=== PATIENT | male | born 1975 | race Two or more races ===

== ENCOUNTER 2021-11-17 16:48 | Inpatient (IN) | payer SELFPAY ==
[~2021-11-17] VITALS: Ht 182.9 cm; Wt 70.4 kg
[2021-11-17] MEDS ORDERED: KETOROLAC 15 MG/ML VIAL. IVP ONE (17:00)
[2021-11-17] MEDS ORDERED: CONTRAST GIVEN. MC PRN (17:30)
[2021-11-17] MEDS ORDERED: IOHEXOL 300 MG/ML 100ML VIAL. IV ONE (17:30)
--- NOTE | 2021-11-17 18:01 | RAD ---
Exam: CT head and cervical spine INDICATION: Fall greater than 10 feet, left-sided chest pain TECHNIQUE: Sequential axial images through the head and cervical spine were obtained without the admi nistration of IV contrast. Exposure: One or more of the following in the visualized dose reduction techniques were utilized for this examination: 1. Automated exposure control 2. Adjustment of the MA and/or KV according to patient size 3. Use of iterative of reconstructive technique Comparisons: None FINDINGS: Head: There is curvilinear hyperdensity noted at the superior right frontal region series 2 image 27. There is no midline shift or sulcal effacement. No acute vascular territory infarction is identified. Aguilera-white distinction is preserved. The ventricular system is within normal limits without compression hydrocephalus. The basal cisterns are well maintained. The visualized portions of the paranasal sinuses and mastoid air cells are well-pneumatized. No acute fractures. Cervical spine: Straightening of cervical spine which may positional. Vertebral body heights are well-maintained. Fracture to the cervical spine is not identified. No significant spondylotic change in cervical spine. Visualized paraspinal soft tissues are unremarkable. IMPRESSION: Small amount of subarachnoid hemorrhage at the right superior frontal region. No mass effect. Negative CT C-spine for acute traumatic injury. FOR INTERNAL CODING PURPOSES Critical result: Findings discussed with ADRIEN NUNES at 11/17/2021 5:58 PM. RESULT CODE: (C) Electronically signed by: Brittani Rodrigues MD (11/17/2021 5:59 PM) [facility]
--- NOTE | 2021-11-17 18:06 | PHYS DOC ---
Past Medical History Past Medical History: No Pertinent History Past Surgical History: No Surgical History Smoking Status: Light Tobacco Smoker Additional Information: Cigars Alcohol Use: Occasionally General Adult EDM: Chief Complaint: MECHANICAL FALL HPI: HPI: Patient is a 46 year old male who presents with headache, anterior chest wall pain and low back pain status post fall from a tree. Patient states he was trimming a tree when he lost his balance and fell. He states he had initial contact with the ground on his left side and then a second impact to his low back. He denies loss of consciousness. Patient rates his headache 5/10, anterior chest wall pain 7/10 and worse with deep inspiration and low back pain 7/10. Patient denies all past medical history and daily medications. Patient denies vision changes, dizziness, palpitations, edema, saddle anesthesia, bowel or bladder incontinence, extremity paresthesias. Patient is romansh speaking. Interview and exam were conducted in romansh with good understanding and fluid communication. Review of Systems: Review of Systems: Constitutional: Denies fever, chills or generalized weakness Eyes: Denies change in visual acuity, visual field deficits or discharge HENT: Denies ear pain, nasal congestion or sore throat Respiratory: Denies cough or shortness of breath Cardiovascular: Denies palpitations or edema GI: Denies abdominal pain, nausea, vomiting, bloody stools or diarrhea : Denies dysuria or hematuria Musculoskeletal: Denies back pain or joint pain Integument: See HPI Neurologic: See HPI Heart Score: C/O Chest Pain: N/A Current Medications: Current Medications Medications (Trade) Dose Ordered Sig/Leann Start Time Stop Time Status Last Admin Dose Admin Info (CONTRAST GIVEN -- Rx MONITORING) 1 each PRN DAILY PRN 11/17/21 17:30 11/19/21 17:29 Iohexol (Omnipaque 300 Mg/ml) 75 ml 1X ONCE 11/17/21 17:30 11/17/21 17:31 DC 11/17/21 17:39 75 ML Ketorolac Tromethamine (Toradol 15mg Vial) 15 mg 1X ONCE 11/17/21 17:00 11/17/21 17:04 DC 11/17/21 17:09 15 MG Allergies: Allergies: Allergies Coded Allergies Type Severity Reaction Last Updated Verified No Known Drug Allergies 11/17/21 No Physical Exam: PE: Constitutional: Well developed, well nourished, no acute distress, non-toxic ap pearance, patient is disheveled and his pants are covered in dirt. HENT: Normocephalic, atraumatic, bilateral external ears normal, oropharynx moist, no oral exudates, nose normal. Eyes: PERRL, EOMI, conjunctiva normal, no discharge. Neck: Normal range of motion, no tenderness, supple, no stridor. Cardiovascular: Heart regular rate and rhythm. No apparent murmurs, rubs or gallops. Lungs & Thorax: Equal thoracic expansion, no increased work of breathing, reproducible chest wall tenderness on palpation to the left anterior chest, sounds symmetrical and clear to auscultation in all lung damon. Abdomen: Bowel sounds normal, soft, no tenderness, no masses, no pulsatile masses, negative Silverio sign, negative Noriega-Leach sign. Skin: Warm, dry, no erythema, no rash. Back: No step-off, no bony tenderness, bilateral lumbar paraspinal tenderness. Extremities: No tenderness, no cyanosis, no clubbing, ROM intact, no edema. Neurologic: Alert and oriented x4, normal motor function, normal sensory function, no focal deficits noted. Current Patient Data: Labs: Laboratory Tests Test 11/17/21 16:55 White Blood Count 10.7 x10^3/uL (4.0-11.0) Red Blood Count 4.93 x10^6/uL (4.30-5.70) Hemoglobin 15.7 g/dL (13.0-17.5) Hematocrit 46.0 % (39.0-53.0) Mean Corpuscular Volume 94 fL (79-100) Mean Corpuscular Hemoglobin 32 pg (25-35) Mean Corpuscular Hemoglobin Concent 34 g/dL (31-37) Red Cell Distribution Width 13.8 % (11.5-14.5) Platelet Count 298 x10^3/uL (140-400) Neutrophils (%) (Auto) 73 % (31-73) Lymphocytes (%) (Auto) 17 % (24-48) Monocytes (%) (Auto) 10 % (0-9) Eosinophils (%) (Auto) 1 % (0-3) Basophils (%) (Auto) 0 % (0-3) Neutrophils # (Auto) 7.8 x10^3/uL (1.8-7.7) Lymphocytes # (Auto) 1.8 x10^3/uL (1.0-4.8) Monocytes # (Auto) 1.0 x10^3/uL (0.0-1.1) Eosinophils # (Auto) 0.1 x10^3/uL (0.0-0.7) Basophils # (Auto) 0.0 x10^3/uL (0.0-0.2) Sodium Level 143 mmol/L (136-145) Potassium Level 3.6 mmol/L (3.5-5.1) Chloride Level 103 mmol/L (98-107) Carbon Dioxide Level 32 mmol/L (21-32) Anion Gap 8 (6-14) Blood Urea Nitrogen 10 mg/dL (8-26) Creatinine 0.9 mg/dL (0.7-1.3) Estimated GFR (Cockcroft-Gault) 91.3 BUN/Creatinine Ratio 11 (6-20) Glucose Level 88 mg/dL (70-99) Calcium Level 8.6 mg/dL (8.5-10.1) Total Bilirubin 0.2 mg/dL (0.2-1.0) Aspartate Amino Transf (AST/SGOT) 29 U/L (15-37) Alanine Aminotransferase (ALT/SGPT) 36 U/L (16-63) Alkaline Phosphatase 126 U/L (46-116) Total Protein 7.9 g/dL (6.4-8.2) Albumin 4.1 g/dL (3.4-5.0) Albumin/Globulin Ratio 1.1 (1.0-1.7) Ethyl Alcohol Level < 10 mg/dL (0-10) Vital Signs: Vital Signs Date Time Temp Pulse Resp B/P (MAP) Pulse Ox O2 Delivery O2 Flow Rate FiO2 11/17/21 18:03 58 18 109/58 (75) 100 Room Air 11/17/21 17:09 58 18 133/73 (93) 100 Room Air 11/17/21 16:49 97.9 67 18 135/83 (100) 95 Room Air 97.9 Radiology/Procedures: Radiology/Procedures: PROCEDURE: CT HEAD AND CERVICAL SPINE WO Exam: CT head and cervical spine INDICATION: Fall greater than 10 feet, left-sided chest pain TECHNIQUE: Sequential axial images through the head and cervical spine were obtained without the administration of IV contrast. Exposure: One or more of the following in the visualized dose reduction techniques were utilized for this examination: 1. Automated exposure control 2. Adjustment of the MA and/or KV according to patient size 3. Use of iterative of reconstructive technique Comparisons: None FINDINGS: Head: There is curvilinear hyperdensity noted at the superior right frontal region series 2 image 27. There is no midline shift or sulcal effacement. No acute vascular territory infarction is identified. Aguilera-white distinction is preserved. The ventricular system is within normal limits without compression hydrocephalus. The basal cisterns are well maintained. The visualized portions of the paranasal sinuses and mastoid air cells are well- pneumatized. No acute fractures. Cervical spine: Straightening of cervical spine which may positional. Vertebral body heights are well-maintained. Fracture to the cervical spine is not identified. No significant spondylotic change in cervical spine. Visualized paraspinal soft tissues are unremarkable. IMPRESSION: Small amount of subarachnoid hemorrhage at the right superior frontal region. No mass effect. Negative CT C-spine for acute traumatic injury. FOR INTERNAL CODING PURPOSES Critical result: Findings discussed with ADRIEN NUNES at 11/17/2021 5:58 PM. RESULT CODE: (C) Electronically signed by: Brittani Rodrigues MD (11/17/2021 5:59 PM) [facility] PROCEDURE: CT CHEST ABD PELVIS W/CONTRAST Study: CT chest, abdomen and pelvis with contrast INDICATION: Fall from a height. Left-sided chest pain. Low back pain. COMPARISON: None. TECHNIQUE: Helical CT imaging performed of the chest, abdomen and pelvis after the intravenous administration of 75 cc Omnipaque 300. Coronal and sagittal reformats were obtained. One or more of the following individualized dose reduction techniques were utilized for this examination: 1. Automated exposure control 2. Adjustment of the mA and/or kV according to patient size 3. Use of iterative reconstruction technique. FINDINGS: CT Chest: Intact thoracic aorta and visualized great vessels. No retrosternal hematoma, pericardial effusion or pneumomediastinum. No focal airspace opacity. Minimal atelectasis. No pleural effusion or pneumothorax. No displaced rib fracture. No suspicious thoracic vertebral body height loss. Grossly intact posterior elements. No facet malalignment. CT Abdomen/Pelvis: No acute abnormality of the liver, gallbladder, pancreas, spleen, adrenal glands or kidneys. Unremarkable bladder and prostate. Within normal limits course and caliber of the small and large bowel. Mild volume colonic stool burden. Distended stomach with ingested material. No acute major vascular abnormality. No free fluid or pneumoperitoneum. Mild acute superior endplate compression deformity at L1 and L2 with no more than 10-15 percent height loss. No osseous retropulsion. Grossly intact posterior elements. IMPRESSION: CT Chest: 1. No sequela of acute trauma identified throughout the chest. No displaced rib fracture. CT Abdomen/Pelvis: 1. Mild acute superior endplate compression deformities at L1 and L2 with no more than 10-15% height loss and no osseous retropulsion. No sequela of trauma seen elsewhere throughout the abdomen or pelvis. Electronically signed by: STEVE SHULTZ MD (11/17/2021 6:15 PM) [facility] Course & Med Decision Making: Course & Med Decision Making Pertinent Labs and Imaging studies reviewed. (See chart for details) Patient is a 46-year-old male with multiple musculoskeletal complaints following fall from a tree. Initial exam not acutely concerning. CT imaging without contrast ordered of the head and neck, with contrast ordered of the chest/abdomen/pelvis. Patient states his pain is improved after administration of Toradol. CT imaging head reveals a right-sided frontal lobe density that may represent a small subarachnoid hemorrhage. Neurosurgery paged for consult. Spoke to Belinda on Dr. Mac service, who had Dr. Mac review CT images. They recommend patient be admitted at minimum overnight in the ICU with repeat CT to be performed in the morning. Patient should undergo neuro checks per protocol. Patient and his friend at bedside were informed of findings and treatment plan. They are agreeable. All of their questions were answered. Jamshidon Disclaimer: Dragon Disclaimer: This electronic medical record was generated, in whole or in part, using a voice recognition dictation system. Departure Departure Impression: Primary Impression: Traumatic brain injury Qualified Codes: S06.9X0A - Unspecified intracranial injury without loss of consciousness, initial encounter Additional Impression: Fall from tree, initial encounter Disposition: ADMITTED INPATIENT Admitting Physician: LEENA ([place]) Condition: GUARDED Referrals: NO PCP (PCP) MADDISON CASTANEDA Nov 17, 2021 18:06
--- NOTE | 2021-11-17 18:18 | RAD ---
Study: CT chest, abdomen and pelvis with contrast INDICATION: Fall from a height. Left-sided chest pain. Low back pain. COMPARISON: None. TECHNIQUE: Helical CT imaging performed of the chest, abdomen and pelvis after the intravenous admini stration of 75 cc Omnipaque 300. Coronal and sagittal reformats were obtained. One or more of the following individualized dose reduction techniques were utilized for this examinat ion: 1. Automated exposure control 2. Adjustment of the mA and/or kV according to patient size 3. Use of iterative reconstruction technique. FINDINGS: CT Chest: Intact thoracic aorta and visualized great vessels. No retrosternal hematoma, pericardial effusion or pneumomediastinum. No focal airspace opacity. Minimal atelectasis. No pleural effusion or pneumothorax. No displaced rib fracture. No suspicious thoracic vertebral body height loss. Grossly intact posterio r elements. No facet malalignment. CT Abdomen/Pelvis: No acute abnormality of the liver, gallbladder, pancreas, spleen, adrenal glands or kidneys. Unremark able bladder and prostate. Within normal limits course and caliber of the small and large bowel. Mild volume colonic stool burden. Distended stomach with ingested material. No acute major vascular abnormality. No free fluid or pneumoperitoneum. Mild acute superior endplate compression deformity at L1 and L2 with no more than 10-15 percent heigh t loss. No osseous retropulsion. Grossly intact posterior elements. IMPRESSION: CT Chest: 1. No sequela of acute trauma identified throughout the chest. No displaced rib fracture. CT Abdomen/Pelvis: 1. Mild acute superior endplate compression deformities at L1 and L2 with no more than 10-15% height loss and no osseous retropulsion. No sequela of trauma seen elsewhere throughout the abdomen or pelv is. Electronically signed by: STEVE SHULTZ MD (11/17/2021 6:15 PM) [facility]
[2021-11-17 18:25] LABS: BASO % 0 % (0-3); EOS # 0.1 x10^3/uL (0.0-0.7); EOS % 1 % (0-3); HEMOGLOBIN 15.7 g/dL (13.0-17.5); LYMPH # 1.8 x10^3/uL (1.0-4.8); LYMPH % 17 % (24-48); MEAN CORPUSCULAR HEMOGLOBIN 32 pg (25-35); MEAN CORPUSCULAR HGB CONC 34 g/dL (31-37); MEAN CORPUSCULAR VOLUME 94 fL (79-100); MONO % 10 % (0-9); NEUT # 7.8 x10^3/uL (1.8-7.7); NEUT % 73 % (31-73); PLATELET COUNT 298 x10^3/uL (140-400); RED BLOOD COUNT 4.93 x10^6/uL (4.30-5.70); RED CELL DISTRIBUTION WIDTH 13.8 % (11.5-14.5); WHITE BLOOD COUNT 10.7 x10^3/uL (4.0-11.0)
[2021-11-17 18:36] LABS: CALCIUM 8.6 mg/dL (8.5-10.1); CREATININE 0.9 mg/dL (0.7-1.3); GFR 91.3; POTASSIUM 3.6 mmol/L (3.5-5.1)
[2021-11-17 18:41] LABS: ALBUMIN 4.1 g/dL (3.4-5.0); ALBUMIN/GLOBULIN RATIO 1.1 (1.0-1.7); TOTAL BILIRUBIN 0.2 mg/dL (0.2-1.0); TOTAL PROTEIN 7.9 g/dL (6.4-8.2)
[2021-11-17 20:44] VITALS: BP 118/75
[2021-11-17 22:45] LABS: BARBITURATES NEG (NEG); BENZODIAZEPINES NEG (NEG); CANNABINOIDS POS (NEG); COCAINE POS (NEG); METHADONE NEG (NEG); OPIATES NEG (NEG); PHENCYCLIDINE NEG (NEG)
[2021-11-17 22:54] LABS: AMPHETAMINE/METHAMPHETAMINE NEG (NEG)
--- NOTE | 2021-11-17 23:24 | HP ---
DATE OF SERVICE: 11/17/2021 ADMIT DATE: 11/17/2021 CHIEF COMPLAINT: Fall. HISTORY OF PRESENT ILLNESS: The patient is a pleasant 46-year-old male who was cutting down trees. He fell and struck his head. He complains of a little headache, some anterior chest wall pain. We did a CT of the head. There was some concern that he could have a small subarachnoid bleed. I discussed the case with ER physician. We are going to admit the patient and consult Neurosurgery. PAST MEDICAL HISTORY: Benign. ALLERGIES: None. FAMILY HISTORY: Diabetes. SOCIAL HISTORY: He smokes lightly. No drink or drugs. He does tree work. MEDICATIONS: Reviewed, please refer to the MRAD. REVIEW OF SYSTEMS: GENERAL: No history of weight change, weakness or fevers. HEAD: He complains of headache. SKIN: No bruising, hair changes or rashes. EYES: No blurred, double or loss of vision. NOSE AND THROAT: No history of nosebleeds, hoarseness or sore throat. HEART: No history of palpitations, chest pain or shortness of breath on exertion. LUNGS: Denies cough, hemoptysis, wheezing or shortness of breath. GASTROINTESTINAL: Denies changes in appetite, nausea, vomiting, diarrhea or constipation. GENITOURINARY: No history of frequency, urgency, hesitancy or nocturia. NEUROLOGIC: He complains of headache. PSYCHIATRIC: No history of panic, anxiety or depression. ENDOCRINE: No history of heat or cold intolerance, polyuria or polydipsia. EXTREMITIES: Denies muscle weakness, joint pain, pain on walking or stiffness. PHYSICAL EXAMINATION: VITALS: Within normal limits and are stable. GENERAL: No apparent distress. Alert and oriented. HEENT: Normal cephalic atraumatic, external auditory canals are patent. EYES: Extraocular muscles are intact, pupils are equally round and reactive to light and accommodation. MUSCULOSKELETAL: Well developed, well nourished, good range of motion. ENDOCRINE: No thyromegaly was palpated. LYMPHATICS: No cervical chain or axillary nodes were noted. HEMATOPOIETIC: No bruising. NECK: Supple, no JVD, no thyromegaly was noted. LUNGS: Clear to auscultation in all lung damon without rhonchi or wheezing. HEART: RRR, S1, S2 present. Peripheral pulses intact, no obvious murmurs were noted. ABDOMEN: Soft, nontender. Positive bowel sounds no organomegaly, normal bowel sounds. EXTREMITIES: Without any cyanosis, clubbing, or edema. Pedal pulses intact, Homans sign is negative. NEUROLOGIC: Normal speech, normal tone. A and O x 3, moves all extremities, no obvious focal deficits. PSYCHIATRIC: Normal affect, normal mood. Stable. SKIN: No ulcerations or rashes, good skin turgor, no jaundice. VASCULAR: Good capillary refill, neurovascular bundle appears to be intact. LABORATORY DATA: CT of the head shows a possible small amount of subarachnoid hemorrhage at the right superior frontal region. White count is 10, hemoglobin 15, platelets 298. ASSESSMENT AND PLAN: Fall with head trauma and possible subarachnoid bleed. The patient has been admitted. We will consult Dr. Cotton. ICU monitoring, neuro checks, home meds, deep venous thrombosis prophylaxis. Full code. MALLORIE/GAUTAM DR: Vazquez TID: [id number]
[2021-11-18] VITALS (11 sets, daily range): BP systolic 94–130; BP diastolic 58–66
--- NOTE | 2021-11-18 07:04 | NUR ---
Pt was admitted from ED last night 11/17 at 2034. Pt neuro assessments showed no deficits or changes from admission, pt only complaining of minor head/neck pain. 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 Pt O2 sats read >95% until midnight when spo2 function on montior stopped working. Pt respiratory status was monitored throughout the night. Communicated with pt in primary language german.
[2021-11-18] MEDS ORDERED: HYDR-2761 PO (11:30)
--- NOTE | 2021-11-18 11:31 | PDOC ---
[employer] PROGRESS NOTE Date of Service DOS: DATE: 11/18/21 TIME: 11:30 Chief Complaint Chief Complaint Fall with head trauma and possible subarachnoid bleed. History of Present Illness History of Present Illness 11/18/2021 Patient seen and examined Discussed with RN Chart reviewed He seems to be at his baseline I reviewed the films on the new CAT scan I do not really see any blood We will go ahead and discharge Vitals/I&O Vitals/I&O: Vital Signs Date Time Temp Pulse Resp B/P (MAP) Pulse Ox O2 Delivery O2 Flow Rate FiO2 11/18/21 11:00 64 16 130/65 (86) 99 Room Air 11/18/21 08:00 98.9 98.9 I & O 11/17/21 11/17/21 11/18/21 15:00 23:00 07:00 Intake Total 250 ml 300 ml Output Total 650 ml 0 ml Balance -400 ml 300 ml Physical Exam General: Alert Heart: Regular rate Lungs: Clear Abdomen: Normal bowel sounds Extremities: No clubbing Skin: No rashes Labs Labs: Laboratory Tests Test 11/17/21 16:55 11/17/21 22:31 White Blood Count 10.7 x10^3/uL (4.0-11.0) Red Blood Count 4.93 x10^6/uL (4.30-5.70) Hemoglobin 15.7 g/dL (13.0-17.5) Hematocrit 46.0 % (39.0-53.0) Mean Corpuscular Volume 94 fL (79-100) Mean Corpuscular Hemoglobin 32 pg (25-35) Mean Corpuscular Hemoglobin Concent 34 g/dL (31-37) Red Cell Distribution Width 13.8 % (11.5-14.5) Platelet Count 298 x10^3/uL (140-400) Neutrophils (%) (Auto) 73 % (31-73) Lymphocytes (%) (Auto) 17 % (24-48) Monocytes (%) (Auto) 10 % (0-9) Eosinophils (%) (Auto) 1 % (0-3) Basophils (%) (Auto) 0 % (0-3) Neutrophils # (Auto) 7.8 x10^3/uL (1.8-7.7) Lymphocytes # (Auto) 1.8 x10^3/uL (1.0-4.8) Monocytes # (Auto) 1.0 x10^3/uL (0.0-1.1) Eosinophils # (Auto) 0.1 x10^3/uL (0.0-0.7) Basophils # (Auto) 0.0 x10^3/uL (0.0-0.2) Sodium Level 143 mmol/L (136-145) Potassium Level 3.6 mmol/L (3.5-5.1) Chloride Level 103 mmol/L (98-107) Carbon Dioxide Level 32 mmol/L (21-32) Anion Gap 8 (6-14) Blood Urea Nitrogen 10 mg/dL (8-26) Creatinine 0.9 mg/dL (0.7-1.3) Estimated GFR (Cockcroft-Gault) 91.3 BUN/Creatinine Ratio 11 (6-20) Glucose Level 88 mg/dL (70-99) Calcium Level 8.6 mg/dL (8.5-10.1) Total Bilirubin 0.2 mg/dL (0.2-1.0) Aspartate Amino Transf (AST/SGOT) 29 U/L (15-37) Alanine Aminotransferase (ALT/SGPT) 36 U/L (16-63) Alkaline Phosphatase 126 U/L (46-116) Total Protein 7.9 g/dL (6.4-8.2) Albumin 4.1 g/dL (3.4-5.0) Albumin/Globulin Ratio 1.1 (1.0-1.7) Ethyl Alcohol Level < 10 mg/dL (0-10) Urine Opiates Screen Neg (NEG) Urine Methadone Screen Neg (NEG) Urine Barbiturates Neg (NEG) Urine Phencyclidine Screen Neg (NEG) Urine Amphetamine/Methamphetamine Neg (NEG) Urine Benzodiazepines Screen Neg (NEG) Urine Cocaine Screen Pos (NEG) Urine Cannabinoids Screen Pos (NEG) Urine Ethyl Alcohol Neg (NEG) Assessment and Plan Assessmemt and Plan Problems Medical Problems: (1) Fall from tree, initial encounter Status: Acute (2) Traumatic brain injury Status: Acute Discharge see dictation Comment Review of Relevant I have reviewed the following items rahul (where applicable) has been applied. Medications: Current Medications Medications (Trade) Dose Ordered Sig/Leann Route PRN Reason Start Time Stop Time Status Last Admin Dose Admin Ketorolac Tromethamine (Toradol 15mg Vial) 15 mg 1X ONCE IVP 11/17/21 17:00 11/17/21 17:04 DC 11/17/21 17:09 Iohexol (Omnipaque 300 Mg/ml) 75 ml 1X ONCE IV 11/17/21 17:30 11/17/21 17:31 DC 11/17/21 17:39 Justifications for Admission Other Justification JABIER BROWN III DO Nov 18, 2021 11:31
--- NOTE | 2021-11-18 12:27 | DS ---
DATE OF DISCHARGE: 11/18/2021 ADMITTING DIAGNOSIS: Fall from a tree with head trauma and possible subarachnoid bleed. DISCHARGE DIAGNOSES: Resolving fall, resolving subarachnoid bleed. CONSULTS: Neurosurgery. PROCEDURES: None. HOSPITAL COURSE: The patient is a pleasant 46-year-old male who was cutting down some trees and fell, struck his head. Imaging studies of his brain were suspicious for a very tiny subarachnoid bleed. We admitted him. We observed him overnight in the ICU. Today, I saw and examined him. He is doing great. We have repeated the CAT scan. I looked at his films, I do not see any blood. We plan to discharge if okay with Neurosurgery. DISPOSITION: Home. ACTIVITY: As tolerated. DIET: Low sodium. MEDICATIONS: Please see the MRAD. TOTAL TIME: 34 minutes. MALLORIE/MARGARET DR: MALLORIE/jeff TID: [id number]
--- NOTE | 2021-11-18 12:29 | NUR ---
Patient discharged via wheelchair. Iv removed patient in stable condition. All discharge instructions reviewed and printed in yi. Patients friend picked up patient.
--- NOTE | 2021-11-18 12:35 | RAD ---
CT HEAD/BRAIN WO History: Reason: f/u [facility], s/p fall / Spl. Instructions: / History: Comparison: CT November 17, 2021 Technique: Noncontrast CT imaging was performed of the head. Exposure: One or more of the following individualized dose reduction techniques were utilized for thi s examination: 1. Automated exposure control 2. Adjustment of the mA and/or kV according to patient size 3. Use of iterative reconstruction technique. Findings: Resolved the focus of hyperattenuation within the right superior frontal region seen previously on CT No mass effect. No hydrocephalus. Extra-axial spaces are unremarkable. Imaged orbits are unremarkable. Minimal scattered paranasal sinus because of thickening. Mastoid air cells are clear. No acute calvarial fracture. Impression: 1. Resolved hyperdense focus within the right superior frontal region on prior CT, may relate to res olved subarachnoid hemorrhage or artifact previously. Electronically signed by: Vu Hung DO (11/18/2021 12:33 PM) [facility]
== END 2021-11-18 11:30 | disposition home or self-care (01) | DRG 87 ==
LOC: ER 16:48 → 1 WEST ICU 19:02
PROVIDERS: ADMIT Internal Medicine; ATTEND Internal Medicine
DX: S06.6X0A Traumatic subarachnoid hemorrhage without loss of consciousness, initial encounter (principal); W14.XXXA Fall from tree, initial encounter; Z83.3 Family history of diabetes mellitus; F17.200 Nicotine dependence, unspecified, uncomplicated; W18.39XA Other fall on same level, initial encounter; Y93.89 Activity, other specified; Y92.89 Other specified places as the place of occurrence of the external cause; Y99.8 Other external cause status
CPT/HCPCS: 36415; 70450; 71260; 72125; 74177; 80053; 80307; 85025; 96360; G0480; J1885; Q9967; 99285-25; G0378